=== PATIENT | female | born 1990 | race Caucasian/White ===

== ENCOUNTER 2021-11-04 05:20 | Day surgery (SDC) | payer OTHER ==
[2021-10-31 12:54] VITALS: BMI 24.3
[2021-11-04] MEDS ORDERED: KETOROLAC TROMETHAMINE 30 MG/1 ML VIAL ONE (07:10)
[2021-11-04] MEDS ORDERED: DEXAMETHASONE SOD PHOSPHATE 4 MG/1 ML VIAL ONE (07:10)
[2021-11-04] MEDS ORDERED: LIDOCAINE HCL 2% 100 MG/5 ML DISP.SYRIN ONE (07:10)
[2021-11-04] MEDS ORDERED: PROPOFOL 20 ML ONE (07:11)
[2021-11-04] MEDS ORDERED: ROCURONIUM BROMIDE 50 MG/5 ML SYRINGE ONE (07:11)
[2021-11-04] MEDS ORDERED: MIDAZOLAM HCL 2 MG/2 ML SINGLE DOSE VIAL ONE (07:12)
[2021-11-04] MEDS ORDERED: SUCCINYLCHOLINE CHLORIDE 200 MG/10 ML SYRINGE ONE (07:12)
[2021-11-04] MEDS ORDERED: BUPIVACAINE HCL/PF 0.5% (5MG/ML) 10 ML VIAL ONE (07:31)
[2021-11-04] MEDS ORDERED: LIDOCAINE HCL 1%, 10 MG/ML (20ML VIAL) NR ONE (09:40)
[2021-11-04] MEDS ORDERED: PROMETHAZINE HCL 25 MG/1 ML VIAL IVPB PRN (10:16)
[2021-11-04] MEDS ORDERED: oxyCODONE HCL 5 MG TABLET PO PRN ×2 (10:16)
[2021-11-04] MEDS ORDERED: ONDANSETRON 4 MG/2 ML VIAL IVPUSH PRN (10:16)
[2021-11-04] MEDS ORDERED: LACTATED RINGERS SOLUTION 1,000 ML IV SCH (10:30)
[2021-11-04 12:35] VITALS: BP 120/74; PULSE 61; TEMP 97.3
== END 2021-11-04 12:45 | disposition home or self-care (01) ==
LOC: EDSEX → JASU-SURG 05:20
PROVIDERS: ATTEND Student in an Organized Health Care Education/Training Program
PROC: 0UT74ZZ Resection of Bilateral Fallopian Tubes, Percutaneous Endoscopic Approach (ICD-10-PCS; principal; 2021-11-04 08:00)
DX: Z30.2 Encounter for sterilization (principal)
CPT/HCPCS: 81025; 88302-TC; 94760; C9803-CS; U0003; U0005